=== PATIENT | female | born 1955 | race Hispanic/Latino ===

== ENCOUNTER 2016-07-24 09:33 | Day surgery (SDC) | payer MEDICARE, OTHER ==
--- NOTE | 2016-07-24 10:37 | Anesthesia Consultation ---
Anesthesia Consult and Med Hx Date of service: 07/24/16 - Airway Anesthetic Teeth Evaluation: Poor, Chipped ROM Head & Neck: Adequate (has some pain) Mental/Hyoid Distance: Adequate Mallampati Class: Class II Intubation Access Assessment: Probably Good - Pre-Operative Health Status ASA Pre-Surgery Classification: ASA3 Proposed Anesthetic Plan: MAC - Cardiovascular System Hx Hypertension: Yes - Central Nervous System Hx Neuromuscular Disorder: Yes (numbness in both hands) Hx Back Pain: Yes Hx Psychiatric Problems: Yes (Depression/Anxiety, severe claustrophobia) - Other Systems Hx Cancer: No Hx Obesity: Yes
--- NOTE | 2016-07-24 10:39 | Anesthesia Day of Surgery ---
Anesthesia Day of Surgery - Day of Surgery Patient Examined: Yes Patient H&P Reviewed: Yes Patient is NPO: Yes
[2016-07-24] MEDS ORDERED: DILAUDID ONE (10:45)
[2016-07-24] MEDS ORDERED: VERSED IV ONE (10:46)
[2016-07-24] MEDS ORDERED: DIPRIVAN 10 MG/ML IV ONE ×4 (10:46)
[2016-07-24] MEDS ORDERED: XYLOCAINE MPF 2% ONE (10:48)
[2016-07-24] MEDS ORDERED: NACL 0.9% 1000 ML 1,000 ML ONE (11:00)
[2016-07-24] MEDS ORDERED: NACL 0.9% 1000 ML 1,000 ML IV SCH (12:00)
[2016-07-24 12:36] VITALS: BP 107/68
--- NOTE | 2016-07-24 13:12 | Post Anesthesia Evaluation ---
- Post Anesthesia Evaluation Patient Participated: Yes Airway Patent: Yes Stable Respiratory Function: Yes Temp > 96.8F: Yes Pain Manageable: Yes Adequeate Hydration: Yes Anesthesia Complications: No Block Receding Appropriately: Not Applicable
--- NOTE | 2016-07-27 09:40 | Magnetic Resonance Report ---
MRI LUMBAR SPINE WITHOUT CONTRAST HISTORY: Low back pain. TECHNIQUE: axial T1, T2. sagittal T1,T2, STIR. COMPARISON: 05/05/16. FINDINGS: The conus terminates at L1. No signal abnormality or mass. The cauda equina is within normal limits. No central canal stenosis. Normal height and alignment of the lumbar vertebra. The facet joints are in appropriate relationship. Normal bone marrow signal. No acute fracture or suspicious bone lesion. The paraspinal soft tissues are unremarkable. The discs are desiccated with mild diffuse narrowing. L1-2: There is a moderate diffuse posterior bulging disc which effaces the ventral thecal sac and results in mild central canal narrowing measuring 8.4 mm in AP dimension. Mild arthritic changes in the facet joints. Normal ligamentum flavum. No significant neural foraminal narrowing. L2-3: A mild diffuse posterior bulging disc is evident. Mild facet arthropathy. Normal ligamentum flavum. No central canal stenosis or significant neural foraminal narrowing. L3-4: A mild circumferential bulging disc is identified. Moderate facet arthropathy with small fluid in the apophyseal joints. Minimal thickening of the ligamentum flavum. Mild right neural foraminal narrowing is estimated 25-50%. No left neural foraminal narrowing or central canal stenosis. L4-5: A mild diffuse posterior bulging disc is identified which lateralizes to the right side. Mild facet arthropathy and hypertrophy of the ligamentum flavum. Mild right neural foraminal narrowing is estimated 25%. No significant left neural foraminal narrowing or central canal narrowing. L5-S1: A mild diffuse posterior bulging disc is identified. Moderate facet arthropathy with fluid in the apophyseal joints. Mild hypertrophy of ligamentum flavum. Mild right neural foraminal narrowing is estimated at 25%. No left neural foraminal narrowing or central canal narrowing. IMPRESSION: Mild to moderate multilevel lumbar spondylosis as described above. No significant change can be appreciated since 05/05/16.
== END 2016-07-24 13:10 | disposition home or self-care (01) ==
LOC: OPU 09:33
PROVIDERS: ATTEND Orthopaedic Surgery Orthopaedic Surgery of the Spine
DX: M47.896 Other spondylosis, lumbar region (principal); I10 Essential (primary) hypertension; F32.9 Major depressive disorder, single episode, unspecified; F41.9 Anxiety disorder, unspecified; F40.240 Claustrophobia; E66.9 Obesity, unspecified; Z68.38 Body mass index [BMI] 38.0-38.9, adult
CPT/HCPCS: 72148; J1170; J2250; J2704; J7030